=== PATIENT | female | born 1955 | race Two or more races ===

== ENCOUNTER 2018-09-17 23:48 | Emergency (ER) | payer OTHER ==
[~2018-09-17] VITALS: Ht 154.9 cm; Wt 92.2 kg
[2018-09-17 23:56] VITALS: Ht 154.9 cm; Wt 92.2 kg
--- NOTE | 2018-09-18 00:58 | ERD ---
ER Documentation Chief Complaint Chief Complaint Epistaxis X 1 day HPI This is 63-year-old female here for epistaxis. The patient said that yesterday she had a lot of bloody noses anteriorly from the right nares for about 5 minutes and resolved. She said that today happened delegate suddenly began about 2 hours prior to arrival and would not stop. She got to triage where she had a nasal clamp on and in the waiting room she started to feel a bit dizzy and needed to lay down. She had no loss of consciousness but felt like she might pass out. She had no chest pain no shortness of breath no headache or palpitations. She said this lasted for about 1 minute and then it went away currently she feels back to normal ROS All systems reviewed and are negative except as per history of present illness. Allergies Allergies: Coded Allergies: No Known Allergy (Unverified , 09/17/18) FmHx Family History: No coronary disease Physical Exam Vitals Vital Signs Date Temp Pulse Resp B/P (MAP) Pulse Ox O2 O2 Flow FiO2 Time Delivery Rate 09/17/18 98.4 98 18 134/85 96 23:56 (101) Physical Exam Const: Well-developed, well-nourished Head: Atraumatic, normocephalic Eyes: Normal Conjunctiva, PERRLA, EOMI, normal sclera, no nystagmus ENT: Normal External Ears, patient has nasal clamp on no active bleeding, moist mucus membranes. Neck: Full range of motion. No meningismus, no lymphadenopathy. Resp: Clear to auscultation bilaterally, no wheezing, rhonchi, rales Cardio: Regular rate and rhythm, no murmurs, S1 S2 present Abd: Soft, non tender x 4, non distended. Normal bowel sounds, no guarding or rebound, no pulsitile abdominal masses or bruits Skin: No petechiae or rashes, no ecchymosis , no maculopapular rash Back: No midline or flank tenderness Ext: No cyanosis, or edema, FROM x 4, normal inspection, neurovascularly intact x 4 Neur: Awake and alert, STR 5/5 x 4, sensation intact x 4, no focal findings, cerebellum intact Psych: Normal Mood and Affect Result Diagram: 09/18/18 0020 Results 24 hrs Laboratory Tests Test 09/18/18 00:20 White Blood Count 12.5 10^3/ul Red Blood Count 4.00 10^6/ul Hemoglobin 12.3 g/dl Hematocrit 36.0 % Mean Corpuscular Volume 90.0 fl Mean Corpuscular Hemoglobin 30.8 pg Mean Corpuscular Hemoglobin Concent 34.2 g/dl Red Cell Distribution Width 12.8 % Platelet Count 299 10^3/UL Mean Platelet Volume 10.0 fl Immature Granulocytes % 0.300 % Neutrophils % 62.7 % Lymphocytes % 29.6 % Monocytes % 5.4 % Eosinophils % 1.4 % Basophils % 0.6 % Nucleated Red Blood Cells % 0.0 /100WBC Immature Granulocytes # 0.040 10^3/ul Neutrophils # 7.8 10^3/ul Lymphocytes # 3.7 10^3/ul Monocytes # 0.7 10^3/ul Eosinophils # 0.2 10^3/ul Basophils # 0.1 10^3/ul Nucleated Red Blood Cells # 0.0 10^3/ul Current Medications Medications Dose Sig/Daniel Start Time Status Last (Trade) Ordered Route PRN Stop Time Admin Dose Reason Admin 2 spray ONCE ONCE 09/18/18 DC Oxymetazoline NASAL 01:00 09/18/18 HCl (Afrin 01:01 Marine) Procedures/MDM The patient is not anemic. She will get some Afrin and nasal clamp and then when her bleeding is subsided will discharge home. Departure Diagnosis: Primary Impression: Epistaxis Condition: Stable SARAH ROMO DO Sep 18, 2018 00:58
[2018-09-18] MEDS ORDERED: OXYMETAZOLINE 0.05% 15 ML NAS SPRAY NASAL ONE (01:00)
[2018-09-18 01:23] VITALS: BP 132/77; PULSE 71; RESP 18
[2018-09-18] MEDS ORDERED: OMEG-135 PO (01:49)
[2018-09-18] MEDS ORDERED: ERGO2000 PO (01:49)
[2018-09-18] MEDS ORDERED: GLUC100015 PO (01:49)
[2018-09-18] MEDS ORDERED: BENA40TA56 PO (01:49)
[2018-09-18] MEDS ORDERED: AMLO-218 PO (01:49)
== END 2018-09-18 01:48 | disposition home or self-care (01) ==
LOC: E/R 23:48
DX: R04.0 Epistaxis (principal)
CPT/HCPCS: 85025; 99283